=== PATIENT | male | born 2000 | race Caucasian/White ===

== ENCOUNTER 2022-04-27 13:51 | Observation (INO) ==
[2022-04-27 15:04] LABS: Acetaminophen < 10 mcg/mL (10-20); BUN/Creatinine Ratio 16 (6-26); Blood Urea Nitrogen 14 mg/dL (6-20); Carbon Dioxide 28 mEq/L (23-29); Chloride 102 mEq/L (98-107); Glucose 78 mg/dL (70-105); Osmolality,Calculated 283 (280-300); Potassium 3.7 mEq/L (3.5-5.1); Salicylate < 2.5 mg/dL (15.0-30.0); Sodium 137 mEq/L (136-145)
[2022-04-27 15:11] LABS: Bilirubin,Urine Negative (Negative); Blood,Urine Negative (Negative); Clarity,Urine Clear (Clear); Color,Urine Light-Yellow (Yellow); Glucose,Urine (UA) Normal (Normal); Ketones,Urine Negative (Negative); Leukocyte Esterase,Urine Negative (Negative); Nitrite,Urine Negative (Negative); Protein,Urine Negative (Neg-Trace); Specific Gravity,Urine 1.005 (1.010-1.025); Urobilinogen,Urine Normal (Normal)
[2022-04-27 15:16] LABS: Basophils # 0.1 K/mcL (0.0-0.2); Basophils % 0.6 %; Eosinophils # 0.5 K/mcL (0.0-0.6); Eosinophils % 6.4 %; Hematocrit 49.2 % (37.5-50.1); Hemoglobin 16.3 g/dL (12.9-16.9); Immature Granulocytes % 0.3 % (0-4); Lymphocytes # 2.4 K/mcL (0.6-4.6); Lymphocytes % 30.7 %; Mean Corpuscular HGB Conc 33.1 g/dL (31.6-35.5); Mean Corpuscular Hemoglobin 29.6 pg (28.0-33.3); Mean Corpuscular Volume 89.5 fL (83.0-100.0); Mean Platelet Volume 9.1 fL (9.4-12.4); Monocytes # 0.6 K/mcL (0.0-1.3); Monocytes % 8.2 %; Neutrophils # 4.2 K/mcL (1.6-8.9); Platelet Count 311 K/mcL (140-400); Red Cell Distribution Width 12.1 % (11.5-14.5); Segmented Neutrophils % 53.8 %; White Blood Count 7.8 K/mcL (4.3-11.1)
[2022-04-27 15:23] LABS: Amphetamine Screen,Urine Negative ng/mL (Cutoff=1000); Barbiturate Screen,Urine Negative ng/mL (Cutoff=200); Benzodiazepines Screen,Urine Negative ng/mL (Cutoff=200); Cannabinoid Screen,Urine Negative ng/mL (Cutoff = 50); Cocaine Screen,Urine Negative ng/mL (Cutoff= 300); Opiate Screen,Urine Negative ng/mL (Cutoff=300); Phencyclidine Screen,Urine Negative ng/mL (Cutoff=25)
[2022-04-27 16:05] LABS: Estimated Average Glucose 108 mg/dl; Hemoglobin A1C 5.4 %
[2022-04-27 16:06] LABS: Chol/HDL Ratio 4.4 (0-4.9); Cholesterol 209 mg/dL (< 200); Ethanol < 10 mg/dL (Less than 10); HDL Cholesterol 48 mg/dL (40-59); LDL Cholesterol,Calculated 137 mg/dL (< 100); Triglycerides 122 mg/dL (< 150)
[2022-04-27 19:44] LABS: Influenza A PCR Negative (Negative); Influenza B PCR Negative (Negative); Resp. Syncytial Virus PCR Negative (Negative)
[2022-04-27 19:46] LABS: SARS-CoV-2 by PCR (In House) Negative (Negative)
[2022-04-27] MEDS ORDERED: *HR* LORazepam 1 MG TABLET PO PRN (20:23)
[2022-04-27] MEDS ORDERED: haloperidoL 5 MG TABLET PO PRN (20:23)
[2022-04-27] MEDS ORDERED: *HR* LORazepam 2 MG/ML VIAL IM PRN (20:23)
[2022-04-27] MEDS ORDERED: Haloperidol Lactate 5 MG/ML VIAL IM PRN (20:23)
[2022-04-27] MEDS ORDERED: Ibuprofen 400 MG TABLET PO PRN (20:23)
[2022-04-27] MEDS ORDERED: traZODone 50 MG TABLET PO PRN (20:23)
[2022-04-28] MEDS ORDERED: Mag Hydrox/Al Hydrox/Simeth 30 ML UDC PO PRN (09:49)
[2022-04-28] MEDS ORDERED: hydrOXYzine pamoate 25 MG CAPSULE PO PRN (09:49)
[2022-04-28] MEDS ORDERED: MOM Conc 10 ML UD.LIQ PO PRN (09:49)
[2022-04-28] MEDS: Nicotine 2 MG GUM BC PRN (18:34)
[2022-04-28] MEDS ORDERED: Divalproex (24 HR) 500 MG TABLET PO SCH (21:00)
[2022-04-29 09:49] VITALS: BP 113/63; PULSE 54; TEMP 97.7; O2SAT 98
[2022-04-29] MEDS: Nicotine 2 MG GUM BC PRN (11:16)
== END 2022-04-29 11:54 | disposition home or self-care (01) ==
LOC: EMEROOARM 13:51 → 1ANU 19:55 → INTOOBSV 19:55 → 1ANU 21:05 → UNDODISIN 21:42
PROVIDERS: ADMIT Psychiatry & Neurology Psychiatry; ATTEND Psychiatry & Neurology Psychiatry